=== PATIENT | female | born 1950 | race Caucasian/White ===

== ENCOUNTER → 2017-02-06 | Outpatient (CLI) | payer BC ==
[2017-02-06 09:40] LABS: BASO % 0.2 %; BASO ABS # 0.01 K/uL (0-0.2); COMPLETE YES; EOS % 4.7 %; HEMATOCRIT 44.2 % (37-47); LYMPH % 40.7 %; LYMPH ABS # 2.32 K/uL (1.2-3.4); MEAN CELL VOLUME 90.2 fL (80-100); MEAN CORPUSCULAR HEMOGLOBIN 29.2 pg (25-34); MEAN CORPUSCULAR HGB CONC 32.4 g/dl (32-36); MONO % 6.5 %; NEUT % 47.9 %; PLATELET COUNT 238 K/uL (130-400)
[2017-02-06 10:01] LABS: CALCIUM 9.2 mg/dl (8.5-10.1)
[2017-02-06 10:02] LABS: ALT/SGPT 21 U/L (12-78); AST/SGOT 15 U/L (15-37); BLOOD UREA NITROGEN 15 mg/dl (7-18); BUN/CREATININE RATIO 17.3 (10-20); CARBON DIOXIDE 28 mmol/L (21-32); CHLORIDE 107 mmol/L (98-107); CHOLESTEROL 207 mg/dl (0-200); CREATININE 0.86 mg/dl (0.60-1.20); GLUCOSE 92 mg/dl (70-99); POTASSIUM 3.9 mmol/L (3.5-5.1); SODIUM 143 mmol/L (136-145); TRIGLYCERIDES 316 mg/dl (0-150); VERY LOW DENSITY LIPOPROT CALC 63 mg/dl
[2017-02-06 10:12] LABS: ALB/GLOB RATIO 1.1 (0.9-2); ALKALINE PHOSPHATASE 70 U/L (45-117); CHOLESTEROL/HDL RATIO 4.4; HDL CHOLESTEROL 47 mg/dl; LDL CHOLESTEROL CALCULATED 97 mg/dl
== END | disposition home or self-care (01) ==
LOC: C.LAB1850 08:30
PROVIDERS: ATTEND Internal Medicine
DX: E78.00 Pure hypercholesterolemia, unspecified (principal); E03.9 Hypothyroidism, unspecified; I10 Essential (primary) hypertension

== ENCOUNTER → 2017-10-30 | Outpatient (CLI) | payer BC ==
[2017-10-30 10:37] LABS: ALBUMIN 3.5 gm/dl (3.4-5.0); ALT/SGPT 19 U/L (12-78); AST/SGOT 11 U/L (15-37); BLOOD UREA NITROGEN 21 mg/dl (7-18); CALCIUM 8.9 mg/dl (8.5-10.1); CARBON DIOXIDE 30 mmol/L (21-32); CREATININE 0.83 mg/dl (0.60-1.20); GLUCOSE 92 mg/dl (70-99); POTASSIUM 3.5 mmol/L (3.5-5.1); SODIUM 140 mmol/L (136-145)
[2017-10-30 10:48] LABS: ALKALINE PHOSPHATASE 76 U/L (45-117); CHOLESTEROL 230 mg/dl (0-200); LDL CHOLESTEROL CALCULATED 139 mg/dl
== END | disposition home or self-care (01) ==
LOC: C.LAB1850 08:37
PROVIDERS: ATTEND Internal Medicine
DX: E78.00 Pure hypercholesterolemia, unspecified (principal); E03.9 Hypothyroidism, unspecified; M85.80 Other specified disorders of bone density and structure, unspecified site